=== PATIENT | female | born 1965 | race Caucasian/White ===

== ENCOUNTER 2017-09-20 07:08 | Outpatient (CLI) | payer OTHER ==
[~2017-09-20 07:08] MED LIST: MOTRIN800 MG PO
== END 2017-09-20 07:18 | disposition home or self-care (01) ==
LOC: NUCLEAR 07:08
DX: R00.2 Palpitations (principal); E03.8 Other specified hypothyroidism; I25.89 Other forms of chronic ischemic heart disease
CPT/HCPCS: 78452; 93017; A9500

== ENCOUNTER 2018-09-30 11:20 | Outpatient (CLI) | payer OTHER | END 2018-09-30 15:56 | disposition home or self-care (01) | LOC: RAD 11:20 | DX: S82.92XA Unspecified fracture of left lower leg, initial encounter for closed fracture (principal) ==

== ENCOUNTER 2019-04-11 15:08 | Outpatient (CLI) | payer OTHER | END 2019-04-11 15:15 | disposition home or self-care (01) | LOC: RAD 15:08 | DX: J18.8 Other pneumonia, unspecified organism (principal) ==

== ENCOUNTER 2019-11-07 08:31 | Outpatient (CLI) | payer OTHER | END 2019-11-07 08:35 | disposition home or self-care (01) | LOC: RAD 08:31 | DX: M15.0 Primary generalized (osteo)arthritis (principal) ==

== ENCOUNTER 2020-02-17 15:34 | Outpatient (CLI) | payer OTHER | END 2020-02-17 15:36 | disposition home or self-care (01) | LOC: RAD 15:34 | DX: M15.0 Primary generalized (osteo)arthritis (principal) ==

== ENCOUNTER 2020-04-27 11:56 | Outpatient (CLI) | payer OTHER | END 2020-04-27 12:02 | disposition home or self-care (01) | LOC: RAD 11:56 | DX: A15.8 Other respiratory tuberculosis (principal) ==

== ENCOUNTER 2020-04-27 12:54 | Outpatient (CLI) | payer OTHER | END 2020-04-27 15:00 | disposition home or self-care (01) | LOC: CERTIFICAD 12:54 | DX: A53.9 Syphilis, unspecified (principal) ==

== ENCOUNTER 2020-05-21 08:00 | Outpatient (CLI) | payer OTHER | END 2020-05-21 15:00 | disposition home or self-care (01) | LOC: PPH VACUNA 08:00 | DX: Z23 Encounter for immunization (principal) ==

== ENCOUNTER 2021-04-11 16:19 | Outpatient (CLI) | payer OTHER | END 2021-04-11 16:21 | disposition home or self-care (01) | LOC: LAB 16:19 | DX: Z03.818 Encounter for observation for suspected exposure to other biological agents ruled out (principal); R06.02 Shortness of breath ==

== ENCOUNTER 2021-04-16 10:07 | Outpatient (CLI) | payer OTHER | END 2021-04-16 10:08 | disposition home or self-care (01) | LOC: LAB 10:07 | PROVIDERS: ATTEND Pediatrics Neonatal-Perinatal Medicine | DX: Z03.818 Encounter for observation for suspected exposure to other biological agents ruled out (principal) ==

== ENCOUNTER 2021-05-30 08:00 | Outpatient (CLI) | payer OTHER | END 2021-05-30 08:30 | disposition home or self-care (01) | LOC: PPH VACUNA 08:00 | PROVIDERS: ATTEND Emergency Medicine Pediatric Emergency Medicine | DX: Z23 Encounter for immunization (principal) ==

== ENCOUNTER 2021-06-03 08:35 | Outpatient (CLI) | payer OTHER | END 2021-06-03 08:45 | disposition home or self-care (01) | LOC: PPH VACUNA 08:35 | PROVIDERS: ATTEND Emergency Medicine Pediatric Emergency Medicine | DX: Z23 Encounter for immunization (principal) ==

== ENCOUNTER 2022-02-22 07:13 | Outpatient (CLI) | payer OTHER | END 2022-02-22 07:14 | disposition home or self-care (01) | LOC: NUCLEAR 07:13 | PROVIDERS: ATTEND Internal Medicine Rheumatology | DX: I87.2 Venous insufficiency (chronic) (peripheral) (principal); Z88.2 Allergy status to sulfonamides ==

== ENCOUNTER 2022-05-03 08:00 | Outpatient (CLI) | payer OTHER | END 2022-05-03 08:05 | disposition home or self-care (01) | LOC: PPH VACUNA 08:00 | PROVIDERS: ATTEND Emergency Medicine Pediatric Emergency Medicine | DX: Z23 Encounter for immunization (principal) ==

== ENCOUNTER 2023-05-25 02:37 | Outpatient (CLI) | payer OTHER | END 2023-05-25 02:47 | disposition home or self-care (01) | LOC: PPH VACUNA 02:37 | PROVIDERS: ATTEND Emergency Medicine Pediatric Emergency Medicine | DX: Z23 Encounter for immunization (principal) | CPT/HCPCS: 90686; G0008 ==

== ENCOUNTER 2024-05-06 13:49 | Outpatient (CLI) | payer OTHER | END 2024-05-06 13:58 | disposition home or self-care (01) | LOC: RAD 13:49 | PROVIDERS: ATTEND Internal Medicine Rheumatology | DX: M19.011 Primary osteoarthritis, right shoulder (principal); M19.012 Primary osteoarthritis, left shoulder ==

== ENCOUNTER 2024-06-10 13:12 | Outpatient (CLI) | payer OTHER ==
[2024-06-11] MEDS ORDERED: PREVACID30 MG PO (09:06)
[2024-06-11] MEDS ORDERED: ABILIFY2 MG PO (09:06)
[2024-06-11] MEDS ORDERED: SYNTHROID112 MCG PO (09:06)
[2024-06-11] MEDS ORDERED: ESTRACE1 MG PO (09:07)
[2024-06-11] MEDS ORDERED: ESTAZOLAM2 MG PO (09:07)
[2024-06-11] MEDS ORDERED: MIRALAX17 GM PO (09:08)
[2024-06-11] MEDS ORDERED: [UNRECOGNIZED DRUG - OTHER] PO (09:08)
[2024-06-11] MEDS ORDERED: ROGAINE60 GM TOP (09:09)
[2024-06-11] MEDS ORDERED: CELEBREX200MG PO (09:09)
[2024-06-11] MEDS ORDERED: CELEXA20 MG PO (12:10)
== END 2024-06-10 13:17 | disposition home or self-care (01) ==
LOC: RAD 13:12
PROVIDERS: ATTEND Emergency Medicine Pediatric Emergency Medicine
DX: Z01.811 Encounter for preprocedural respiratory examination (principal)

== ENCOUNTER 2024-06-16 09:34 | Day surgery (SDC) | payer OTHER ==
[2024-06-11 09:10] VITALS: BP 106/71
[~2024-06-16] VITALS: Ht 157.5 cm; Wt 81.6 kg
[~2024-06-16 09:34] MED LIST changes: +ABILIFY2 MG PO; +CELEBREX200MG PO; +CELEXA20 MG PO; +ESTAZOLAM2 MG PO; +ESTRACE1 MG PO; +MIRALAX17 GM PO; +PREVACID30 MG PO; +ROGAINE60 GM TOP; +SYNTHROID112 MCG PO; +[UNRECOGNIZED DRUG - OTHER] PO
[2024-06-16] MEDS ORDERED: KETOROLAC TROMETHAMINE 60 MG VIAL IM ONE (17:00)
[2024-06-16] MEDS ORDERED: EPINEPHRINE HCL/PF 1 MG/ML AMPUL IR ONE ×2 (17:00→17:30)
[2024-06-16] MEDS ORDERED: LIDOCAINE HCL 1%/EPINEPHRINE 20ML VIAL IJ ONE (17:00)
[2024-06-16] MEDS ORDERED: BUPIVACAINE HCL 30 ML VIAL IJ ONE (17:00)
[2024-06-16] MEDS ORDERED: CEFAZOLIN SODIUM 1,000 MG VIAL IV ONE ×2 (17:00→18:30)
[2024-06-16] MEDS ORDERED: MORPHINE SULFATE 4 MG/ML VIAL IV ONE ×3 (17:00→19:30)
[2024-06-16] MEDS ORDERED: DUI500 PO (18:23)
[2024-06-16] MEDS ORDERED: OXYC1TAB9 PO (18:24)
[2024-06-16] MEDS ORDERED: PROMETHAZINE HCL 25 MG/ML AMPUL IM PRN (18:30)
[2024-06-16] MEDS ORDERED: MEPERIDINE HCL/PF 25 MG/ML VIAL IM PRN (18:30)
[2024-06-16] MEDS ORDERED: OxyCODONE HCL/APAP UD (PERCOCET) PO PRN (18:30)
[2024-06-16] MEDS ORDERED: SUGAMMADEX SODIUM 200 MG/2 ML VIAL IV ONE (19:00)
[2024-06-16] MEDS ORDERED: CEFADROXIL 500 MG CAPSULE PO SCH (21:00)
== END 2024-06-16 21:10 | disposition home or self-care (01) ==
LOC: CIR.AMB 09:34
PROVIDERS: ATTEND Orthopaedic Surgery Sports Medicine
DX: M75.122 Complete rotator cuff tear or rupture of left shoulder, not specified as traumatic (principal); M94.212 Chondromalacia, left shoulder; M24.112 Other articular cartilage disorders, left shoulder

== ENCOUNTER 2024-07-17 01:50 | Outpatient (CLI) | payer OTHER ==
[~2024-07-17 01:50] MED LIST changes: +DUI500 PO; +MELOXICAM15 MG PO; +OXYC1TAB9 PO
== END 2024-07-17 02:00 | disposition home or self-care (01) ==
LOC: PPH VACUNA 01:50
PROVIDERS: ATTEND Emergency Medicine Pediatric Emergency Medicine
DX: Z23 Encounter for immunization (principal)

== ENCOUNTER 2025-04-24 10:04 | Outpatient (CLI) | payer OTHER ==
[~2025-04-24 10:04] MED LIST changes: +DICLOFENAC EPO1 EACH TD
[2025-04-24 11:20] LABS: COVID-19 AG POSITIVE (NEGATIVE)
== END 2025-04-24 10:28 | disposition home or self-care (01) ==
LOC: LAB 10:04
PROVIDERS: ATTEND Pediatrics Neonatal-Perinatal Medicine
DX: U07.1 COVID-19 (principal); Z20.822 Contact with and (suspected) exposure to COVID-19